=== PATIENT | female | born 1950 | race Caucasian/White ===

== ENCOUNTER 2019-08-19 07:19 | Inpatient (IN) | payer OTHER ==
[2019-07-31 12:41] LABS: HEMATOCRIT 40.4 % (37.0-47.0); HEMOGLOBIN 13.2 gm/dL (12.0-15.0); MCH 30.2 pg (26.0-34.0); MCHC 32.8 g/dL (28.0-37.0); MCV 92.3 fL (80.0-100.0); RBC 4.38 mil/uL (4.20-5.00); RDW 13.4 % (10.5-14.5); URINE BILIRUBIN NEGATIVE (Negative); URINE BLOOD NEGATIVE (Negative); URINE CLARITY CLEAR; URINE COLOR YELLOW; URINE GLUCOSE-RANDOM* NEGATIVE (Negative); URINE KETONES NEGATIVE (Negative); URINE LEUKOCYTES-REFLEX NEGATIVE (Negative); URINE NITRITE-REFLEX NEGATIVE (Negative); URINE PROTEIN (DIPSTICK) NEGATIVE (Negative); URINE SPECIFIC GRAVITY <= 1.005 (1.005-1.035); URINE UROBILINOGEN 0.2 E.U./dl (0.2-1.0); WBC 6.4 thou/uL (4.0-11.0)
[2019-07-31 12:50] LABS: ALBUMIN 4.2 g/dL (3.4-5.0); CALCIUM 9.5 mg/dL (8.5-10.1); CREATININE 0.8 mg/dL (0.6-1.0); POTASSIUM 4.2 mmol/L (3.5-5.1)
[2019-07-31 12:52] LABS: PROTIME 10.9 Seconds (9.3-11.4)
--- NOTE | 2019-08-01 08:38 | EKG ---
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 08/01/19 0838 1247 1247 Will Wells MD, FACC /EPI
[~2019-08-19] VITALS: Ht 152.4 cm; Wt 50.8 kg
[2019-08-19] VITALS (7 sets, daily range): BP systolic 113–131; BP diastolic 67–76
[~2019-08-19 07:19] MED LIST: AMBIEN 10 MG TA10 MG PO; ASPIRIN325 PO; CALCIUM 600 +1 EAC7 PO; FLONASE 0.05%50 MCG NARES; MELOXICAM15 MG PO; NIACIN 500 MG500 M1 PO; TIROSINT125 MCG PO; TRAZODONE HCL50 MG PO; VITAMIN D32000 UNI1 PO; ZYRTEC10 M5 PO
--- NOTE | 2019-08-19 19:35 | NUR ---
PATIENT ARRIVED AT 1430 PT ALERT XS 4, NO PAIN OR RESP DISTRESS, HAS 2 PICCO DRESSINGS AND 2 POLAR PACKS. SCD'S AND MARTHA HOSE ON. IV FLUIDS AND ABT ORDERED. DIET REGULAR. ROOM AIR. VS. 97.6 18 80 117/73 95% RA. AT BEDSIDE. PT WALKED WITH PT THERAPY AROUND HALLS AND NURSES STATION.
[2019-08-20 00:59] VITALS: BP 117/70
--- NOTE | 2019-08-20 03:31 | NUR ---
Assumed pt care at 1900. Pt is A/OX4,VSS.Continent of B&B. Up with moderate assist of 1 RW/GB to the bathroom without problems, WBAT. C/o pain LOP 12/09,medicated with [place] with relief reported,polar pack in place. Fall precautions in place,calls approp. Call light/personal items within reach, will continue to monitor pt.
[2019-08-20 05:16] VITALS: BP 117/70
[2019-08-20 05:33] LABS: HEMATOCRIT 28.3 % (37.0-47.0); HEMOGLOBIN 9.5 gm/dL (12.0-15.0); MCHC 33.5 g/dL (28.0-37.0); MCV 92.4 fL (80.0-100.0); RBC 3.06 mil/uL (4.20-5.00); RDW 13.2 % (10.5-14.5); WBC 9.5 thou/uL (4.0-11.0)
[2019-08-20 07:11] VITALS: BP 120/63
--- NOTE | 2019-08-20 10:47 | NUR ---
Assumed pt care at 0700. Patient is AOx4, VSS, incision clean dry & intact. 2 PICCO dressings, [address], scds and adam hose on. Diet Regular, room air. Patient is participating with PT for therapy, pt reports pain is controlled with pain analgesics. Call light in reach, will continue to monitor.
--- NOTE | 2019-08-20 14:57 | O ---
[facility] [place] [address] OPERATIVE REPORT Name: MARTHA CISSE Room #: 439-P [facility] IN M.R.#: [id number] Admission: 08/19/19 Attend Phys: Saturnino Peterson MD Discharge: Date of : 46 Report #: [id number] THIS REPORT FOR: //name// CC: MANUEL DUNN Physician staff Saturnino Peterson DATE OF SERVICE: 08/19/2019 PREOPERATIVE DIAGNOSIS: Bilateral knee valgus osteoarthritis. POSTOPERATIVE DIAGNOSIS: Bilateral knee valgus osteoarthritis. PROCEDURE: Bilateral total knee arthroplasty using Navio robotic communications assistant. SURGEON: Saturnino Peterson MD. TECHNICAL SALES REPRESENTATIVES: Coty Deluca PA-C. INDICATIONS FOR TECHNICAL SALES REPRESENTATIVES: Throughout the case, extensive retraction and manipulation of the knees was required. This was afforded to me by my communications assistant. ANESTHESIA: LMA with adductor canal blocks bilaterally. IMPLANTS: For the right knee is Vick and Nephew size 4 Legion cobalt chrome posterior stabilized femur, size 3 tibia, size 11 constrained polyethylene, and size 29 patella. For the left knee, a size 5 narrow Legion cobalt chrome posterior stabilized femur, size 3 tibia, size 11 constrained polyethylene, and a size 29 patella. TOURNIQUET TIME: 60 minutes for the right knee and 55 minutes for the left knee. ESTIMATED BLOOD LOSS: 50 mL. COMPLICATIONS: None. SPECIMENS: None. CONDITION UPON LEAVING THE OPERATING ROOM: Stable. INDICATIONS FOR PROCEDURE: The patient is a 69-year-old female with severe bilateral valgus knee osteoarthritis. She had failed conservative measures for this and after discussion with her, she elected for a bilateral total knee arthroplasty. [facility] [address] [place] [address] OPERATIVE REPORT Name: MARTHA CISSE Room #: 439-P [facility] IN M.R.#: [id number] Admission: 08/19/19 Attend Phys: Saturnino Peterson MD Discharge: Date of : 46 Report #: [id number] DESCRIPTION OF PROCEDURE: Risks, benefits, alternatives, and complications were discussed in detail with the patient including, but not limited to, risk of anesthesia, risk of damage to nerves, arteries, or blood vessels, risk for infection or bleeding, risk for a continued knee pain, and need for reoperation. Informed consent was obtained from the patient. Bilateral knees were appropriately marked in the preoperative holding area. IV Ancef was given for preoperative antibiotics. She was brought to the operating room and placed in supine position on operating room table. LMA anesthesia was induced without complication. Tourniquets were placed on bilateral thighs. Bilateral lower extremities were prepped and draped in normal sterile fashion. Timeout was performed, properly identifying the patient and procedure as well as the instrumentation and implants. All in the operating room were in agreement. Following dictation applies to bilateral knees. Lower extremity was exsanguinated. Tourniquet was inflated. Tourniquet time was 60 minutes for the right knee and 55 minutes for the left knee. Standard midline approach to the knee was made with 10 blade through the skin. Dissection was taken down sharply to the fascia and deep flaps were developed medially and laterally. Fresh 10 blade was used to make a medial parapatellar arthrotomy and the knee was inspected. There was a severe valgus osteoarthritic change with a complete [id number] of the lateral compartment. There was also severe patellofemoral compartment osteoarthritic change. ACL and PCL were removed sharply. Reference pins were placed in the femur and the tibia and the knee was then digitally mapped using the [employer] robotic system. Intraoperative plan was made and we sized the size 4 femur for the right and a size 5 narrow for the left. After acceptance of the intraoperative plan, the distal femoral cut was made with a Navio bur and the 4-in-1 cutting block was placed. Anterior, posterior, and chamfer cuts were made. Attention was then turned to the tibia. The remainder of the menisci removed with Bovie cautery. The tibial resection guide was pinned in place and then using the Navio for placement, tibial resection was made. After this, flexion and extension gaps were checked and found to have good balance laterally in flexion and extension with an 11 polyethylene. She had a significant laxity medially with a valgus stress, which was expected. Given her initial valgus osteoarthritic deformity, it was felt we can make up for this with a constrained implant. After this, 9 mm was taken off the posterior surface of the patella and a size 29 patellar trial button was placed. Knee was taken through a range of motion and found to be stable and found to have good patellar tracking. After this, trial components were removed. Bony ends were thoroughly irrigated with normal saline. A final size 3 tibia, size 5 narrow, and a size 4 femur were cemented respectively on the left and right knees. A size 29 patella was cemented in place. While the cement cured, a periarticular injection consisting of morphine, ropivacaine, epinephrine, and Toradol was placed. After the cement cured, tourniquet was deflated. Hemostasis was obtained with Bovie cautery. Final size 11 constrained polyethylene was placed. A gram of vancomycin was placed deep in the joint. [address] [address] OPERATIVE REPORT Name: MARTHA CISSE Room #: 439-P [facility] IN M.R.#: [id number] Admission: 08/19/19 Attend Phys: Saturnino Peterson MD Discharge: Date of : 46 Report #: [id number] Fascia was closed with 0 Vicryl and skin was closed with 2-0 Vicryl and 3-0 Monocryl. Dermabond and a RAMANDEEP dressing were applied. The patient tolerated this procedure well and went to the recovery room under care of anesthesia postoperatively. <ELECTRONICALLY SIGNED> By: Saturnino Peterson MD 08/20/19 1457 1601 1720 Saturnino Peterson MD /nt
[2019-08-20 15:39] VITALS: BP 124/71
--- NOTE | 2019-08-20 15:56 | NUR ---
PT ADMITTED RELATED TO [facility] TOTAL KNEES. CM REVIEWED CHART AND SPOKE WITH CARE TEAM. CM MET WITH PT AND SPOUSE AT BEDSIDE THIS DAY. PT IS A&O X4. YISEL GRIMALDO INTRODUCED. PT INDICATED SHE LIVES IN A HOUSE WITH HER SPOUSE WITH 1 TO ENTER AND 5 LEVELS OF STEPS INSIDE. 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 PT INDICATED SHE WILL NEED A FWW ISSUED FOR USE UPON DC. CM NOTIFIED [facility] AND SHE WILL DELIVER WALKER TOMORROW. PT INDICATED SHE IS SET UP WITH AN OP THERAPY APPOINTMENT AT [facility] UPON [place]. PT AND CARE TEAM ANTICIAPTE PT DISCHARGING HOME TOMORROW. CM TO FOLLOW TO ENSURE ALL DC NEEDS.
[2019-08-20 21:23] VITALS: BP 135/94
[2019-08-21 04:35] VITALS: BP 122/73
--- NOTE | 2019-08-21 05:19 | NUR ---
Assumed pt care at 1900. A/OX4, VSS. Up with AX1, RW/GB, WBAT. Bilateral RAMANDEEP drsg in place, polar packs in place. C/o pain meicated per EMAR with partial relief reported. Fall precautions implemented call appropriately.
[2019-08-21 05:46] LABS: HEMATOCRIT 26.8 % (37.0-47.0); HEMOGLOBIN 8.9 gm/dL (12.0-15.0); MCH 30.5 pg (26.0-34.0); MCHC 33.2 g/dL (28.0-37.0); MCV 91.6 fL (80.0-100.0); RBC 2.93 mil/uL (4.20-5.00); RDW 13.3 % (10.5-14.5); WBC 5.5 thou/uL (4.0-11.0)
[2019-08-21 07:34] VITALS: BP 123/58
--- NOTE | 2019-08-21 12:31 | NUR ---
[facility] [employer] DELIVERED PT'S FWW THIS AM. PT INDICATED THAT THEY ANTICIPATE THAT PT WILL BE MEDICALLY STABLE TO DC HOME THIS AFTERNOON. PT IS ESTABLISHED WITH OP PT UPON DC. NO OTHER CM INTERVENTION INDICATED. CASE CLOSED.
[2019-08-21] MEDS ORDERED: NEURONTIN 300300 M1 PO (14:40)
[2019-08-21] MEDS ORDERED: ASPIRIN325 PO (14:40)
[2019-08-21 16:07] VITALS: BP 123/58
--- NOTE | 2019-08-21 16:18 | NUR ---
ASSUMED CARE OF PATIENT AT 0715, PATIENT ALERT AND ORIENTED X 4. PATIENT UP WITH ASSIST X 1 WITH GAIT BELT AND WALKER. PATIENT HAD BILATERAL KNEE REPLACEMENT ON MONDAY, RAMANDEEP DRESSINGS, POLAR CARE, MARTHA HOSE AND SCD'S IN PLACE. PATIENT WOKRED WITH PHYSICAL THERAPY TODAY, SHE DID WELL, SHE DID STAIRS AND OK FROM PT/SUSIE TO DISCHARGE TO HOME. PAIN LEVEL TODAY HAS BEEN IMPROVED WITH PAIN MEDS. PATIENT HAS BEEN TAKING HYDROCODONE AND OXYCODONE, SHE ALSO RECEIVED MORPHINE ER THIS AM. HYDROCODONE 1 TABLET GIVEN PRIOR TO DISCHARGE. [place] HERE THIS AFTERNOON AND HAS DISCHARGED THE PATIENT TO HOME. HERE TO TRANSPORT THE PATIENT HOME. LEFT FOREARM IV REMOVED PRIOR TO DISCHARGE. THIS RN WENT OVER ALL DISCHARGE INSTRUCTIONS WITH THE PATIENT. ALL PERSONAL BELONGINGS SENT WITH THE PATIENT. WITH THE PATIENT, AND ALL PERSONAL BELONGINGS SENT WITH THE PATIENT. DISCHARGE PAPERWORK AND ALL PERSONAL BELONGINGS SENT WITH THE PATIENT.
== END 2019-08-21 17:15 | disposition home or self-care (01) | DRG 462 ==
LOC: TBA 07:19 → 4S 07:19 → PRE 11:47 → 4S 14:27 → ENTRNSPT 08-21 16:38 → 4S 08-21 17:15
PROVIDERS: ADMIT Orthopaedic Surgery
PROC: 0SRC0J9 Replacement of Right Knee Joint with Synthetic Substitute, Cemented, Open Approach (ICD-10-PCS; principal; 2019-08-19)
PROC: 0SRD0J9 Replacement of Left Knee Joint with Synthetic Substitute, Cemented, Open Approach (ICD-10-PCS; principal; 2019-08-19)
PROC: 8E0Y0CZ Robotic Assisted Procedure of Lower Extremity, Open Approach (ICD-10-PCS; principal; 2019-08-19)
DX: M17.0 Bilateral primary osteoarthritis of knee (principal); Z79.82 Long term (current) use of aspirin; Z79.899 Other long term (current) drug therapy; Z28.21 Immunization not carried out because of patient refusal; Z88.8 Allergy status to other drugs, medicaments and biological substances
CPT/HCPCS: 10102; 50010; 50101; 50415; 50915; 50954; 51130; 51225; 51320; 52001; 53000; 53078; 53364; 54118; 56527; 56528; 57095; 57103; 57110; 57127; 57179; 62110; 62900; 64039; 70005